=== PATIENT | male | born 1975 | race Two or more races ===

== ENCOUNTER 2018-07-05 09:31 | Emergency (ER) | payer OTHER ==
[2018-07-05 09:36] VITALS: BP 117/76; PULSE 89; TEMP 97; BMI 28.3
[2018-07-05] MEDS ORDERED: CYCLOBENZAPRINE HCL 5 MG TABLET PO ONE (10:18)
[2018-07-05] MEDS ORDERED: NAPROXEN 500 MG TABLET (FP) PO ONE (10:18)
[2018-07-05] MEDS ORDERED: FAMOTIDINE 20 MG/50 ML IVPB 20 MG/50 ML MG IVPB ONE (10:18)
[2018-07-05] MEDS ORDERED: LIDOCAINE VISCOUS 2% ORAL/TOP 100 ML BOTTLE MM ONE (10:18)
[2018-07-05] MEDS ORDERED: RANITIDINE HCL 150 MG TABLET (FP) PO ONE (10:22)
[2018-07-05] MEDS ORDERED: CYCLOBENZAPRINE HCL 10 MG TABLET (FP) ONE (10:24)
[2018-07-05] MEDS ORDERED: NAPROXEN 500 MG TABLET (FP) ONE (10:24)
[2018-07-05] MEDS ORDERED: LIDOCAINE VISCOUS 2% ORAL/TOP 20 ML UNIT-DOSE CUP ONE (10:24)
[2018-07-05] MEDS ORDERED: RANITIDINE HCL 150 MG TABLET (FP) ONE (10:24)
--- NOTE | 2018-07-05 10:55 | PDOC ---
History of Present Illness - History of Present Illness Initial Comments: 07/05/18 11:01 The patient is a 42 year old male with past medical history of hypertension who presents to the ED with multiple complaints. For three weeks the patient has complaints of pain to his left shoulder, arm, and neck which is exacerbated by movement. 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 The patient denies any radiation to his chest, associated palpitations or shortness of breath. He also reports that last night he could not sleep because he heard an insect buzzing in his right ear and has not stopped since. He denies any fevers, chills, nausea, vomiting, diarrhea, cough, or urinary complaints. Does not have a PCP. <Dorothea Murdock - Last Filed: 07/05/18 11:07> - General History Source: Patient, Old Records Exam Limitations: No Limitations <Huan Hernandez - Last Filed: 07/05/18 11:35> - General Chief Complaint: Pain Stated Complaint: CHEST PAIN, LT ARM PAIN Time Seen by Provider: 07/05/18 09:49 Past History <Dorothea Murdock - Last Filed: 07/05/18 11:07> - Past Medical History COPD: No DVT: No - Suicide/Smoking/Psychosocial Hx Smoking History: Never smoked Have you smoked in the past 12 months: No Hx Alcohol Use: No Drug/Substance Use Hx: No Substance Use Type: None <Huan Hernandez - Last Filed: 07/05/18 11:35> - Past Medical History Allergies/Adverse Reactions: Allergies Allergy/AdvReac Type Severity Reaction Status Date / Time No Known Allergies Allergy Verified 07/05/18 09:36 Home Medications: Ambulatory Orders Cyclobenzaprine HCl 10 mg PO Q8H PRN #14 tablet 06/22/18 Naproxen [Naprosyn -] 500 mg PO BID #30 tablet 06/22/18 Cyclobenzaprine HCl [Flexeril 10 mg] 10 mg PO Q8H PRN #21 tablet 07/05/18 Naproxen 500 mg PO BID PRN #20 tablet 07/05/18 Review of Systems - Review of Systems Able to Perform ROS?: Yes Comments:: 07/05/18 11:01 GENERAL/CONSTITUTIONAL: No fever or chills. No weakness. HEAD, EYES, EARS, NOSE AND THROAT: (+) buzzing in right ear. No change in vision. No ear pain or discharge. No sore throat. CARDIOVASCULAR: No chest pain or shortness of breath. RESPIRATORY: No cough, wheezing, or hemoptysis. GASTROINTESTINAL: No nausea, vomiting, diarrhea or constipation. GENITOURINARY: No dysuria, frequency, or change in urination. MUSCULOSKELETAL: (+) L arm, neck and back pain. SKIN: No rash NEUROLOGIC: No headache, vertigo, loss of consciousness, or change in strength/ sensation. ENDOCRINE: No increased thirst. No abnormal weight change. HEMATOLOGIC/LYMPHATIC: No anemia, easy bleeding, or history of blood clots. ALLERGIC/IMMUNOLOGIC: No hives or skin allergy. All Other Systems: Reviewed and Negative <Dorothea Murdock - Last Filed: 07/05/18 11:07> *Physical Exam - Vital Signs Last Vital Signs Temp Pulse Resp BP Pulse Ox 97 F L 89 18 117/76 100 07/05/18 09:33 07/05/18 09:33 07/05/18 09:33 07/05/18 09:33 07/05/18 09:33 - Physical Exam Comments: 07/05/18 11:02 GENERAL: Awake, alert, and fully oriented, in no acute distress HEAD: No signs of trauma EYES: PERRLA, EOMI, sclera anicteric, conjunctiva clear ENT: Small insect in right ear canal. Hearing grossly normal, nares patent, oropharynx clear without exudates. Moist mucosa NECK: Normal ROM, supple, no lymphadenopathy, JVD, or masses LUNGS: Breath sounds equal, clear to auscultation bilaterally. No wheezes, and no crackles HEART: Reproducible left anterior chest tenderness with movement. Regular rate and rhythm, normal S1 and S2, no murmurs, rubs or gallops ABDOMEN: Soft, nontender, normoactive bowel sounds. No guarding, no rebound. No masses BACK: Reproducible tenderness on palpation of left trapeizus. No deformity. Palpation of muscles of left upper back. EXTREMITIES: Normal range of motion, no edema. No clubbing or cyanosis. No cords or erythema. NEUROLOGICAL: Cranial nerves II through XII grossly intact. Normal speech, normal gait SKIN: Warm, Dry, normal turgor, no rashes <Dorothea Murdock - Last Filed: 07/05/18 11:07> - Vital Signs Last Vital Signs Temp Pulse Resp BP Pulse Ox 97 F L 89 18 117/76 100 07/05/18 09:33 07/05/18 09:33 07/05/18 09:33 07/05/18 09:33 07/05/18 09:33 <Huan Hernandez - Last Filed: 07/05/18 11:35> Heart Score/ECG Review #1 ECG reviewed & interpreted by me at: 09:35 07/05/18 10:57 NSR 85, no std/jim, normal axis, normal intervals, TWI V4-V6, QTC 442 msec <Huan Hernandez - Last Filed: 07/05/18 11:35> ED Treatment Course - RADIOLOGY Radiograph Interpretation: 07/05/18 11:07 Left shoulder x-ray as reviewed by Dr. Higgins reports no acute pathology. - Medications Given in the ED: ED Medications Discontinued Medications Generic Name Dose Route Start Last Admin Trade Name Connie PRN Reason Stop Dose Admin Cyclobenzaprine HCl 10 mg 07/05/18 10:18 07/05/18 10:27 Cyclobenzaprine Hcl PO 07/05/18 10:19 10 mg ONCE ONE Administration Famotidine/Sodium Chloride 20 mg in 50 mls @ 100 mls/hr 07/05/18 10:18 10:28 Pepcid 20 Mg Premixed Ivpb - IVPB 07/05/18 10:47 Not Given ONCE ONE Lidocaine HCl 15 ml 07/05/18 10:18 07/05/18 10:28 Xylocaine 2% Viscous MM 07/05/18 10:19 Not Given ONCE ONE Naproxen 500 mg 07/05/18 10:18 07/05/18 10:27 Naprosyn - PO 07/05/18 10:19 500 mg ONCE ONE Administration Ranitidine HCl 150 mg 07/05/18 10:22 07/05/18 10:28 Zantac - PO 07/05/18 10:23 150 mg ONCE ONE Administration <[email or web address] - Last Filed: 07/05/18 11:07> - RADIOLOGY Radiology Studies Ordered: Category Date Time Status SHOULDER-LEFT [RAD] Stat Radiology 07/05/18 10:18 Ordered <Huan Hernandez - Last Filed: 07/05/18 11:35> Medical Decision Making - Medical Decision Making 07/05/18 10:23 Portion of his note was written by my scribe, under my supervision. 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 Patient reports persistent left shoulder pain worsened with movement and palpation. Denies lifting heavy objects or neck or spinal issues. States that he turns his left shoulder reproduces the pain. States is in the left upper chest and left upper back. Not exertional. Patient reports that these symptoms have occurred 3 weeks ago and is requesting an x-ray. No traumas. No fevers or chills. Denies coughing. In addition, patient is also currently about a buzzing in his right ear and suspect he has an insect. The patient's left shoulder and left upper chest pain appears to be muscular skeletal origin. Very unlikely to be acute coronary syndrome. We will obtain left shoulder x-ray and treat with NSAIDs and muscle relaxants. Patient is requesting current medications for the naproxen. There is an insect in his right ear canal. We'll attempt to extract the insect. 07/05/18 11:30 Shoulder xray reviewed. No acute findings. With Dr. Caio Connelly, we were successful in extracting out the insect in one piece. Will discharge with PMD and ortho followup. Pt feels comfortable and requests outpatient followup <Huan Hernandez - Last Filed: 07/05/18 11:35> *DC/Admit/Observation/Transfer - Attestations Scribe Attestion: 07/05/18 11:05 Documentation prepared by Dorothea Murdock, acting as medical claims analyst for Huan Hernandez MD. <Dorothea Murdock - Last Filed: 07/05/18 11:07> - Discharge Dispostion Decision to Admit order: No <Huan Hernandez - Last Filed: 07/05/18 11:35> Diagnosis at time of Disposition: History of retained foreign body fully removed Left shoulder pain Qualifiers: Chronicity: acute Qualified Code(s): M25.512 - Pain in left shoulder - Discharge Dispostion Disposition: HOME Condition at time of disposition: Improved - Prescriptions Prescriptions: Cyclobenzaprine HCl [Flexeril 10 mg] 10 mg PO Q8H PRN #21 tablet PRN Reason: Muscle Spasm Naproxen 500 mg PO BID PRN #20 tablet PRN Reason: Pain - Referrals Referrals: Brock Flores MD [Staff Physician] - Jaden Pickett MD [Staff Physician] - - Patient Instructions Printed Discharge Instructions: DI for Shoulder Pain Additional Instructions: We had successfully removed an insect from the right ear. Your xray of the left shoulder is negative for acute findings. Take 500 mg naproxen every 12 hours as needed for pain. Take 10 mg flexeril every 8 hours as needed for muscle spasm. Follow up with your primary care physician. Call to schedule an appointment with an orthopedist. Print Language: MACANESE
--- NOTE | 2018-07-07 16:31 | EKG ---
Test Reason : Blood Pressure : / mmHG Vent. Rate : 085 BPM Atrial Rate : 085 BPM P-R Int : 140 ms QRS Dur : 080 ms QT Int : 372 ms P-R-T Axes : 041 061 -01 degrees QTc Int : 442 ms NORMAL SINUS RHYTHM T WAVE ABNORMALITY, CONSIDER LATERAL ISCHEMIA ABNORMAL ECG WHEN COMPARED WITH ECG OF 22-JUN-2018 09:54, NO SIGNIFICANT CHANGE WAS FOUND Confirmed by Deven Jain ([id number]) on 07/07/2018 4:31:40 PM Referred By: Confirmed By:Deven Jain
== END 2018-07-05 11:43 | disposition home or self-care (01) ==
LOC: JER 09:31
PROC: 09C47ZZ Extirpation of Matter from Left External Auditory Canal, Via Natural or Artificial Opening (ICD-10-PCS; principal; 2018-07-05)
DX: M25.512 Pain in left shoulder (principal); T16.2XXA Foreign body in left ear, initial encounter; X58.XXXA Exposure to other specified factors, initial encounter; Y93.9 Activity, unspecified; Y92.032 Bedroom in apartment as the place of occurrence of the external cause; Y99.8 Other external cause status
CPT/HCPCS: 69200; 73030-TC-LT-FY; 93005; 93010; 99282-25

== ENCOUNTER 2018-08-07 15:08 | Emergency (ER) | payer OTHER ==
[2018-08-07 15:14] VITALS: BMI 29.0
--- NOTE | 2018-08-07 15:20 | PDOC ---
Rapid Medical Evaluation Chief Complaint: Chest Pain Time Seen by Provider: 08/07/18 15:16 Medical Evaluation: Allergies Allergy/AdvReac Type Severity Reaction Status Date / Time No Known Allergies Allergy Verified 07/05/18 09:36 Vital Signs Temp Pulse Resp BP Pulse Ox 99 F 111 H 20 140/86 96 08/07/18 15:11 08/07/18 15:11 08/07/18 15:11 08/07/18 15:11 08/07/18 15:11 08/07/18 15:19 I have performed a brief in person evaluation of this patient The patient presents with a chief complaint of sudden onset of L sided chest pressure 30 minutes ago while doing nothing at home Pertinent physical exam findings: In mild painful distress from chest pain I have ordered the following: CBC, CMP, Lipase, cardiac enzymes, UA, Ucx, PT/INR , EKG, CXR The patient will proceed to the ED for further eval now Discharge Disposition - Diagnosis Chest pain - Referrals - Patient Instructions - Post Discharge Activity
--- NOTE | 2018-08-07 15:36 | PDOC ---
History of Present Illness - General History Source: Patient Exam Limitations: No Limitations <Ginger Teresa - Last Filed: 08/07/18 19:48> <DenisHusamNila Prestonangeline - Last Filed: 08/08/18 08:20> - General Chief Complaint: Chest Pain Stated Complaint: CHEST PAIN Time Seen by Provider: 08/07/18 15:16 - History of Present Illness Initial Comments: 42 YOM with h/o HTN and FHx [place] (in his father) who p/w 08/12 left-sided anterior chest pain radiating to his epigastrium (patient points) for the past hour and a hald, worsened with exertion and unrelieved by rest. He has associated mild lightheadedness, but no recent f/c/n/v/d/c, abdominal distention , black/bloody stool, fainting episodes, falls or injuries, neck pain, back pain , SOB, or other symptoms. He took no medications for his symptoms today. He denies similar prior episodes (though records review does show similar HPI in the past). He notes having laid down after eating something, just before the onset. (Ginger Teresa) Past History - Past Medical History COPD: No DVT: No - Suicide/Smoking/Psychosocial Hx Smoking History: Never smoked Have you smoked in the past 12 months: No Hx Alcohol Use: No Drug/Substance Use Hx: No Substance Use Type: None <Ginger Teresa - Last Filed: 08/07/18 19:48> <Nila Denis - Last Filed: 08/08/18 08:20> - Past Medical History Allergies/Adverse Reactions: Allergies Allergy/AdvReac Type Severity Reaction Status Date / Time No Known Allergies Allergy Verified 07/05/18 09:36 Home Medications: Ambulatory Orders Cyclobenzaprine HCl 10 mg PO Q8H PRN #14 tablet 06/22/18 Naproxen [Naprosyn -] 500 mg PO BID #30 tablet 06/22/18 Cyclobenzaprine HCl [Flexeril 10 mg] 10 mg PO Q8H PRN #21 tablet 07/05/18 Naproxen 500 mg PO BID PRN #20 tablet 07/05/18 Review of Systems - Review of Systems Able to Perform ROS?: Yes Constitutional: No: Chills, Fever, Unexplained wgt Loss HEENTM: No: Nose Congestion, Throat Pain Respiratory: No: Cough, Shortness of Breath Cardiac (ROS): Yes: Chest Pain, Lightheadedness. No: Palpitations ABD/GI: Yes: Other (abdominal pain). No: Constipated, Diarrhea, Nausea, Vomiting : No: Burning, Dysuria Musculoskeletal: No: Back Pain, Neck Pain Integumentary: No: Bruising, Rash Neurological: No: Headache, Numbness, Tingling, Weakness, Dizziness Endocrine: No: Unexplained Weight Gain, Unexplained Weight Loss <Ginger Teresa - Last Filed: 08/07/18 19:48> *Physical Exam <Ginger Teresa - Last Filed: 08/07/18 19:48> <Nila Denis - Last Filed: 08/08/18 08:20> - Vital Signs Last Vital Signs Temp Pulse Resp BP Pulse Ox 98.7 F 84 16 135/90 97 08/07/18 18:49 08/07/18 18:49 08/07/18 18:49 08/07/18 18:49 08/07/18 18:49 08/07/18 16:08 GENERAL: nontoxic and well-appearing, nourished, A/Ox4, no acute distress, speaking in full sentences, answers questions appropriately HEENT: PERRLA, EOMI, moist mucous membranes, no posterior pharyngeal erythema, no tonsillar swelling or exudates, no cervical lymphadenopathy NECK: No midline ttp, no spinal stepoff or deformity, full ROM, supple CARDIOVASCULAR: Regular rate and rhythm, normal S1S2, MGR, radial and DP pulses 2+ and symmetric, capillary refill <2 seconds, extremities warm and well- perfused Chest wall: Normal appearance, no rash, no bruising, no costal stepoff or deformity, nontender to compression LUNGS/RESPIRATORY: No respiratory distress, normal and symmetric chest movements during respirations, lungs CTA bilaterally, equal breath sounds, no cyanosis, no nail clubbing GI/ABDOMEN: Normal symmetric appearance, normoactive bowel sounds, soft, no abdominal tenderness but deep palpation of the abdomen reproduces chief complaint of chest pain exactly, no midline pulsatile masses, no palpated organomegaly : No CVA tenderness, normal external appearance, no lesions BACK: No midline ttp or stepoff or deformity of thoracic or lumbar spine EXTREMITIES: distal pulses 2+, warm and well-perfused, no LE edema SKIN: Warm and dry, no pallor, no jaundice, no bruising, no rash, no skin breakdown, no cuts, no lesions NEUROLOGICAL: GCS 15, CN II-XII grossly intact, ambulating with normal gait, moving all extremities, 5/5 strength proximally and distally, no facial droop, no decreased sensation (Ginger Teresa) Heart Score/ECG Review - History History: Slightly suspicious - Electrocardiogram EKG: Normal - Age Age: </= 45 - Risk Factors Risk Factors Heart Score: No Hx Hypercholesterolemia, Yes Hx Hypertension, No Hx Diabetes, No Smoking History, Yes Positive family hx of cardiac disease, No Hx Obesity - Troponin Troponin: </= normal limit <MalickGinger - Last Filed: 08/07/18 19:48> ED Treatment Course - LABORATORY CBC & Chemistry Diagram: 08/07/18 18:32 08/07/18 18:32 <Ginger Teresa - Last Filed: 08/07/18 19:48> - LABORATORY CBC & Chemistry Diagram: 08/07/18 18:32 08/07/18 18:32 <Nila Denis - Last Filed: 08/08/18 08:20> - ADDITIONAL ORDERS Additional order review: 08/07/18 18:32 RBC 4.86 MCV 88.2 MCHC 33.5 RDW 13.5 MPV 8.0 Neutrophils % 44.2 Lymphocytes % 42.1 H D Monocytes % 9.5 Eosinophils % 3.4 Basophils % 0.8 - Medications Given in the ED: ED Medications Discontinued Medications Generic Name Dose Route Start Last Admin Trade Name Connie PRN Reason Stop Dose Admin Al Hydroxide/Mg Hydroxide 30 ml 08/07/18 16:07 08/07/18 16:38 Mylanta Oral Suspension - PO 08/07/18 16:08 30 ml ONCE ONE Administration Ranitidine HCl 300 mg 08/07/18 16:07 08/07/18 16:38 Zantac - PO 08/07/18 16:08 300 mg ONCE ONE Administration Medical Decision Making <Ginger Teresa - Last Filed: 08/07/18 19:48> <Nila Denis - Last Filed: 08/08/18 08:20> - Medical Decision Making 08/07/18 15:51 Adult Pt p/w chest pain. Vital Signs Temperature 99 F 08/07/18 15:11 Pulse Rate 111 H 08/07/18 15:11 Respiratory Rate 20 08/07/18 15:11 Blood Pressure 140/86 08/07/18 15:11 O2 Sat by Pulse Oximetry (%) 96 08/07/18 15:11 Exam: As noted in Physical Exam section. DDX IBNLT: ACS, pericarditis, tamponade, aortic dissection, AAA, PTX, PE, esophageal tear, esophagitis (e.g. pill, infectious), esophageal stricture, esophageal FB, gastritis, PUD, pancreatitis, cholecystitis, cholangitis, colitis , bowel perforation, PNA/bronchitis, pleurisy, pleuritis, MVP, pulmonary HTN, musculoskeletal, panic/anxiety, etc. Ordered at Triage: CBC, CMP, Lipase, cardiac enzymes, UA, Ucx, PT/INR, EKG, CXR TX ordered: Maalox, ranitidine Patient will need two troponins. 08/07/18 16:03 CBCD was initially reported. Chemistries hemolyzed and re-ordered. EKG: Reviewed; results as noted in ECG Review section. CXR: Nothing acute CBCD results have been removed from lab section. Received call from lab regarding chemistry results. It is noted that the patient's chemistries are contaminated. The chemistries will not be reported. Chemistries are re-ordered and re-drawn. CBCD is re-ordered and re-drawn. Reassessment: Patient states still painful, same area left anterior chest. Ordered is Tylenol 975 mg PO. Patient also asking to leave department and go to his car for a few minutes. I explain the hospital policy, state that we cannot monitor him from his car. I strongly discourage leaving the department. Laboratory Tests 08/07/18 08/07/18 08/07/18 17:03 17:03 17:03 WBC RBC Hgb Hct MCV MCH MCHC RDW Plt Count MPV Absolute Neuts (auto) Neutrophils % Lymphocytes % Monocytes % Eosinophils % Basophils % Nucleated RBC % PT with INR 11.50 INR 0.97 Sodium Cancelled Potassium Cancelled Chloride Cancelled Carbon Dioxide Cancelled Anion Gap Cancelled BUN Cancelled Creatinine Cancelled Creat Clearance w eGFR Cancelled Random Glucose Cancelled Calcium Cancelled Total Bilirubin Cancelled AST Cancelled ALT Cancelled Alkaline Phosphatase Cancelled Troponin I Cancelled Total Protein Cancelled Albumin Cancelled Lipase Cancelled Blood Type A POSITIVE Antibody Screen Negative 08/07/18 08/07/18 18:32 18:32 WBC 6.9 RBC 4.86 Hgb 14.4 Hct 42.9 MCV 88.2 MCH 29.5 MCHC 33.5 RDW 13.5 Plt Count 271 MPV 8.0 Absolute Neuts (auto) 3.1 Neutrophils % 44.2 Lymphocytes % 42.1 H D Monocytes % 9.5 Eosinophils % 3.4 Basophils % 0.8 Nucleated RBC % 0 PT with INR INR Sodium 137 Potassium 4.2 Chloride 104 Carbon Dioxide 27 Anion Gap 5 L BUN 12 Creatinine 0.8 Creat Clearance w eGFR > 60 Random Glucose 108 H Calcium 9.2 Total Bilirubin 0.4 AST 23 ALT 50 Alkaline Phosphatase 59 Troponin I < 0.02 Total Protein 7.6 Albumin 3.8 Lipase 120 Blood Type Antibody Screen Vital Signs Temperature 98.7 F 08/07/18 18:49 Pulse Rate 84 08/07/18 18:49 Respiratory Rate 16 08/07/18 18:49 Blood Pressure 135/90 08/07/18 18:49 O2 Sat by Pulse Oximetry (%) 97 08/07/18 18:49 08/07/18 19:48 On last reassessment VS are stable, Pts pain is resolved, and exam is benign. The Pts HEART score indicates they are low risk and do not require admission currently. The Pt is appropriate for discharge with close outpatient follow up. They are comfortable with this plan and will follow up with their primary care provider in 1-3 days. Specific return precautions are discussed and they will come back to the ER if necessary. (Ginger Teresa) *DC/Admit/Observation/Transfer - Discharge Dispostion Decision to Admit order: No <Ginger Teresa - Last Filed: 08/07/18 19:48> <Nila Denis - Last Filed: 08/08/18 08:20> Diagnosis at time of Disposition: Chest pain Qualifiers: Chest pain type: unspecified Qualified Code(s): R07.9 - Chest pain, unspecified - Discharge Dispostion Disposition: HOME Condition at time of disposition: Stable - Referrals Referrals: [facility] [Provider Group] [facility] [place] [facility] [Provider Group] - Patient Instructions Printed Discharge Instructions: DI for Chest Pain Additional Instructions: YOU WERE SEEN IN THE ER FOR CHEST PAIN. WE DID LAB WORK ON YOUR BLOOD AND URINE , AN ELECTROCARDIOGRAM, AND A CHEST X-RAY, AND WE DID NOT FIND ANY CONCERNING ABNORMALITIES. YOUR SYMPTOMS IMPROVED WITH THE MEDICATIONS WE GAVE YOU IN THE ER. AFTER OUR ASSESSMENT, WE DO NOT BELIEVE YOU ARE HAVING A MEDICAL EMERGENCY AT THIS TIME, AND WE BELIEVE YOU ARE SAFE TO GO HOME. TAKE OVER THE COUNTER PAIN MEDICATIONS FOR YOUR PAIN, INSTRUCTED ON THE MEDICATION LABEL. PLEASE FOLLOW UP WITH YOUR PRIMARY CARE PROVIDER IN 1-3 DAYS. CALL THEIR CLINIC SOON POSSIBLE, TELL THEM YOU WERE SEEN IN THE ER, AND TELL THEM YOU NEED AN APPOINTMENT. IF YOU HAVE ANY NEW OR WORSENING SYMPTOMS, ESPECIALLY WORSENING CHEST PAIN, JAW PAIN, SHOULDER/ARM PAIN, SHORTNESS OF BREATH, SWEATS, NAUSEA, LOSS OF CONSCIOUSNESS, PALPITATIONS, OR OTHER SYMPTOMS, PLEASE COME BACK TO THE ER AT ANY TIME (24 HOURS A DAY). IF YOU ARE HAVING SEVERE OR LIFE THREATENING SYMPTOMS, OR SYMPTOMS THAT MAKE IT UNSAFE TO DRIVE OR HAVE SOMEONE DRIVE YOU, PLEASE CALL 911. Print Language: POLISH
--- NOTE | 2018-08-07 15:59 | PDOC ---
Attending Attestation - Resident Resident Name: TeresaGinger - ED Attending Attestation I have performed the following: I have examined & evaluated the patient, The case was reviewed & discussed with the resident, I agree w/resident's findings & plan - HPI HPI: 08/07/18 17:44 42 YOM with h/o HTN and FHx [place] (in his father) who p/w 08/12 left-sided anterior chest pain radiating to his epigastrium x 1 hour, worsened with exertion and unrelieved by rest. He has associated mild lightheadedness, but no recent f/c/n/v/d/c, abdominal distention, black/bloody stool, fainting episodes , falls or injuries, neck pain, back pain, SOB, or other symptoms. no meds taken. He denies similar prior episodes (though records review does show similar HPI in the past). He notes having laid down after eating something, just before the onset. - Physicial Exam PE: 08/07/18 17:45 NAD, well appearing, MMM, nl conjunctiva, anicteric; neck supple. lungs clear, RRR, abdomen soft +epigastric TTP, periumbilical TTP; no milian's, no rebound or guarding. WESLEY x4, no focal neuro deficits. No peripheral edema. normal color for ethnicity, WWP. - Medical Decision Making 08/07/18 17:45 DDx chest pain: ACS, PUD, esophageal spasm, GERD, gastritis, costochondritis, pneumonia, pleurisy, pericarditis/myocarditis. dehydration, electrolyte/ metabolic derangements, biliary colic. considered but clinically doubt PE/ dissection. more likely GI vs ACS, will rule out with serial trops/EKG vitals notable for tachy cardia likely from pain, normotensive, no respiratory distress, normal sats. Heart score 1, initial trop negative, reassuring, will do 2 trop rule out as onset of sx about 2 hours prior EKG normal sinus rhythm, no interval abnormalities, narrow QRS, ST and T wave segments and morphology normal. CXR wnl, clear no effusion/edema or infiltrate. remainder of labs and lytes normal lipase/LFTs_normal given GI cocktail, initialy tachy from pain, elicited more from epigastrium, no milian's sign to suggest biliary etiology. dispo: s/o to Dr. Dickens pending 2 trops/EKG, repeat VS. 08/08/18 08:19 Heart Score/ECG Review - History History: Slightly suspicious - Electrocardiogram EKG: Normal - Age Age: </= 45 - Risk Factors Risk Factors Heart Score: Yes Hx Hypertension, Yes Positive family hx of cardiac disease Based on the list above the patient has:: 1-2 risk factors - Troponin Troponin: </= normal limit - Score Heart Score - Total: 1 - ECG Impressions Comment:: 08/07/18 17:45 EKG normal sinus rhythm, no interval abnormalities, narrow QRS, ST and T wave segments and morphology normal.
[2018-08-07] MEDS ORDERED: RANITIDINE HCL 150 MG TABLET (FP) PO ONE (16:07)
[2018-08-07] MEDS ORDERED: MAG HYDROX/AL HYDROX/SIMETH 30 ML UNIT-DOSE CUP PO ONE (16:07)
[2018-08-07] MEDS ORDERED: MAG HYDROX/AL HYDROX/SIMETH 30 ML UNIT-DOSE CUP ONE (16:27)
[2018-08-07] MEDS ORDERED: RANITIDINE HCL 150 MG TABLET (FP) ONE (16:27)
[2018-08-07 17:45] LABS: INR 0.97 (0.83-1.09); PROTHROMBIN TIME (PATIENT) 11.5 SEC (9.7-13.0)
[2018-08-07 18:42] LABS: BASO % 0.8 % (0-2.0); EOS % 3.4 % (0-4.5); HEMATOCRIT 42.9 % (35.4-49); HEMOGLOBIN 14.4 GM/dL (11.7-16.9); LYMPH % 42.1 % (8-40); MCH 29.5 pg (25.7-33.7); MCHC 33.5 g/dl (32.0-35.9); MEAN CELL VOLUME 88.2 fl (80-96); MONO % 9.5 % (3.8-10.2); NEUT % 44.2 % (42.8-82.8); PLATELET COUNT 271 K/MM3 (134-434); RBC 4.86 M/mm3 (4.00-5.60); RDW 13.5 % (11.9-15.9); WHITE BLOOD COUNT 6.9 K/mm3 (4.0-10.0)
[2018-08-07 18:50] VITALS: BP 135/90; PULSE 84; TEMP 98.7
[2018-08-07] MEDS ORDERED: ACETAMINOPHEN 500 MG TABLET (FP) PO ONE (19:04)
[2018-08-07 19:42] LABS: ALBUMIN 3.8 g/dl (3.4-5.0); ALK PHOS 59 U/L (45-117); ANION GAP 5 MMOL/L (8-16); BILIRUBIN,TOTAL 0.4 mg/dL (0.2-1); BLOOD UREA NITROGEN 12 mg/dL (7-18); CALCIUM 9.2 mg/dL (8.5-10.1); CHLORIDE 104 mmol/L (98-107); CO2 27 mmol/L (21-32); CREATININE 0.8 mg/dL (0.55-1.3); GLUCOSE,RANDOM 108 mg/dL (74-106); LIPASE 120 U/L (73-393); POTASSIUM 4.2 mmol/L (3.5-5.1); SGOT/AST 23 U/L (15-37); SGPT/ALT 50 U/L (13-61); SODIUM 137 mmol/L (136-145); TOT PROT 7.6 g/dl (6.4-8.2)
--- NOTE | 2018-08-08 17:10 | EKG ---
Test Reason : Blood Pressure : / mmHG Vent. Rate : 103 BPM Atrial Rate : 103 BPM P-R Int : 140 ms QRS Dur : 088 ms QT Int : 326 ms P-R-T Axes : 044 063 027 degrees QTc Int : 427 ms SINUS TACHYCARDIA POSSIBLE LEFT ATRIAL ENLARGEMENT BORDERLINE ECG WHEN COMPARED WITH ECG OF 05-JUL-2018 09:33, NO SIGNIFICANT CHANGE WAS FOUND Confirmed by BELEN GRESHAM MD ([id number]) on 08/08/2018 5:10:19 PM Referred By: Confirmed By:BELEN GRESHAM MD
== END 2018-08-07 20:23 | disposition home or self-care (01) ==
LOC: JER 15:08
DX: R07.9 Chest pain, unspecified (principal); I10 Essential (primary) hypertension
CPT/HCPCS: 36415; 71046-TC-FY; 80053; 83690; 84484; 85025; 85610; 86850; 86900; 86901; 93005; 93010; 99283-25

== ENCOUNTER 2021-02-05 08:52 | Emergency (ER) | payer OTHER ==
[2021-02-05 08:58] VITALS: BP 117/71; PULSE 70; TEMP 97.8; BMI 27.3
[2021-02-05] MEDS ORDERED: SODIUM CHLORIDE 0.9% 500 ML INFUS.BAG IV ONE (09:53)
[2021-02-05] MEDS ORDERED: FAMOTIDINE 20 MG/50 ML IVPB 20 MG/50 ML MG IVPB ONE ×2 (10:12→10:18)
[2021-02-05] MEDS ORDERED: MAG HYDROX/AL HYDROX/SIMETH 30 ML UNIT-DOSE CUP PO ONE (10:12)
[2021-02-05] MEDS ORDERED: MAG HYDROX/AL HYDROX/SIMETH 30 ML UNIT-DOSE CUP ONE (10:18)
[2021-02-05 10:57] LABS: PH,URINE 5.5 (5.0-8.0); URINE APPEARANCE CLEAR; URINE BILIRUBIN NEGATIVE (NEGATIVE); URINE COLOR YELLOW; URINE GLUCOSE (UA) 3+ (NEGATIVE); URINE KETONE TRACE (NEGATIVE); URINE LEUK ESTERASE NEGATIVE (NEGATIVE); URINE NITRITE NEGATIVE (NEGATIVE); URINE PROTEIN NEGATIVE (NEGATIVE); URINE UROBILINOGEN 0.2 mg/dL (0.2-1.0)
[2021-02-05 10:58] LABS: BASO % 0.2 % (0-2.0); EOS % 2.8 % (0-4.5); HEMATOCRIT 42.8 % (35.4-49); HEMOGLOBIN 14.7 GM/dL (11.7-16.9); LYMPH % 42.5 % (8-40); MCH 30.4 pg (25.7-33.7); MCHC 34.3 g/dl (32.0-35.9); MEAN CELL VOLUME 88.5 fl (80-96); MEAN PLT VOLUME 9.1 fl (7.5-11.1); MONO % 9.3 % (3.8-10.2); NEUT % 45.2 % (42.8-82.8); PLATELET COUNT 254 K/MM3 (134-434); RBC 4.84 M/mm3 (4.00-5.60); WHITE BLOOD COUNT 5.5 K/mm3 (4.0-10.0)
[2021-02-05 11:14] LABS: POTASSIUM 4.3 mmol/L (3.5-5.1)
[2021-02-05 11:19] LABS: ALBUMIN 3.7 g/dl (3.4-5.0); CALCIUM 9.2 mg/dL (8.5-10.1)
[2021-02-05 11:20] LABS: BLOOD UREA NITROGEN 14.1 mg/dL (7-18)
[2021-02-05 11:24] LABS: BILIRUBIN,TOTAL 0.5 mg/dL (0.2-1); TOT PROT 7.6 g/dl (6.4-8.2)
== END 2021-02-05 15:00 | disposition left against medical advice (07) ==
LOC: JER 08:52
PROC: 3E033GC Introduction of Other Therapeutic Substance into Peripheral Vein, Percutaneous Approach (ICD-10-PCS; principal; 2021-02-05)
DX: R10.30 Lower abdominal pain, unspecified (principal)
CPT/HCPCS: 36415; 74177-TC; 80053; 81003; 83690; 85025; 87086; 99285-25; Q9967